=== PATIENT | female | born 1995 | race Caucasian/White ===

== ENCOUNTER 2019-01-09 23:45 | Emergency (ER) | payer MEDICAID ==
[~2019-01-09] VITALS: Ht 172.7 cm; Wt 98.0 kg
[2019-01-10 00:27] VITALS: BP 116/62
== END 2019-01-10 01:09 | disposition left against medical advice (07) ==
LOC: ER 23:45
DX: R51 Headache (principal); R42 Dizziness and giddiness; Z53.21 Procedure and treatment not carried out due to patient leaving prior to being seen by health care provider